=== PATIENT | female | born 1990 | race Caucasian/White ===

== ENCOUNTER 2017-04-15 00:47 | Emergency (ER) | payer SELFPAY ==
[2017-04-15 00:55] VITALS: BP 155/65; PULSE 87; RESP 18; TEMP 37.1; O2SAT 99; BMI 32.1
[2017-04-15 01:17] LABS: Microscopic, Urine URINE MICROSCOPIC (MICROSCOPIC)
[2017-04-15 01:18] LABS: Basophils % 0.4 % (0.1-2.0); Eosinophils # 0.1 K/mm3 (0.0-0.4); Eosinophils % 1.4 % (0.1-12.0); Hematocrit 40.5 % (37.0-47.0); Hemoglobin 13.3 g/dL (12.2-16.2); Lymphocytes # 2.2 K/mm3 (0.7-4.5); Lymphocytes % 45.9 K/mm3 (10-50); Mean Corpuscular Hemoglobin 29.8 pg (27.0-31.2); Mean Corpuscular Volume 90.5 fl (81-99); Mean Platelet Volume 7.5 fl (7.4-10.4); Monocytes # 0.4 K/mm3 (0.1-1.0); Monocytes % 8.3 % (1.7-9.3); Neutrophils # 2.1 K/mm3 (1.8-7.8); Neutrophils % 43.9 % (37.0-80.0); Platelet Count 273 K/mm3 (142-424); Red Blood Count 4.47 M/mm3 (4.20-5.40); Red Cell Distribution Width 12.3 % (11.5-17.5); White Blood Count 4.8 K/mm3 (4.8-10.8)
[2017-04-15 01:20] LABS: Appearance,Urine CLOUDY (Clear); Blood, Urine 3+ (Negative); Color,Urine ORANGE (Yellow); Glucose,Urine (UA) Negative (Negative); Ketones,Urine Negative (Negative); Leukocyte Esterase,Urine Negative (Negative); Nitrate,Urine Negative (Negative); Protein,Urine 1+ (Negative); Specific Gravity, Urine >= 1.030 (1.005-1.030); Urobilinogen,Urine 0.2 EU/dl (0.2)
[2017-04-15 01:23] LABS: Bilirubin,Urine Negative (Negative)
--- NOTE | 2017-04-15 01:26 | [facility].EDPREG ---
ED Disposition Clinical Impression: Threatened Disposition: Home, Self-Care Condition on Discharge: Good Instructions: DI for Vaginal Bleeding Additional Instructions: call jb this am - Critical Care Critical Care Time: No Attestation: On 04/15/17, the high probability of a clinically significant, sudden or life threatening deterioration of the following system(s) required my full and direct attention, intervention and personal management. The time I documented below is in addition to time spent performing reported procedures but includes the following listed in this critical care notation. Medical Decision Making - Medical Records Medical records reviewed: Yes: I reviewed the patient's medical records. Vital Signs: 04/15/17 00:55 Temperature 98.7 F Temperature Source Oral Pulse Rate [Right Brachial] 87 Respiratory Rate 18 Blood Pressure [Right Arm] 155/65 Blood Pressure Mean [Right Arm] 95 Blood Pressure Source [Right Arm] Automatic Cuff Blood Pressure Position [Right Arm] Sitting 02 Sat by Pulse Oximetry 99 Oxygen Delivery Method Room Air - Lab Data Lab results reviewed: Yes: I reviewed the patient's lab results. Lab Results 04/15/17 01:07: Urine Color [place], Urine Appearance Cloudy, Urine pH 6.0, Ur Specific [place] >= 1.030, Urine Protein 1+, Urine Glucose (UA) Negative, Urine Ketones Negative, Urine Blood 3+, Urine Nitrate Negative, Urine Bilirubin Negative, Urine Urobilinogen 0.2, Ur Leukocyte Esterase Negative, Urine RBC Tntc, Urine WBC Occasional, Urine Bacteria Trace 04/15/17 01:07: WBC 4.8, RBC 4.47, Hgb 13.3, Hct 40.5, MCV 90.5, MCH 29.8, MCHC 33.0, RDW 12.3, Plt Count 273, MPV 7.5, Neut % (Auto) 43.9, Lymph % (Auto) 45.9, [place] % (Auto) 8.3, Eos % (Auto) 1.4, Baso % (Auto) 0.4, Neut # (Auto) 2.1, Lymph # (Auto) 2.2, [place] # (Auto) 0.4, Eos # (Auto) 0.1, Baso # (Auto) 0.0 04/15/17 01:07: Sodium 139, Potassium 3.6, Chloride 105, Carbon Dioxide 28, Anion Gap 9.6, BUN 13, Creatinine 0.79, Estimated Creat Clear 161, Estimated GFR 89, Est GFR ( Amer) 108, Glucose 97, Calcium 8.6, Total Bilirubin 0.2, AST 30, ALT 48, Alkaline Phosphatase 94, Total Protein 7.5, Albumin 3.7, Globulin 3.8 H, Albumin/Globulin Ratio 1.0 L 04/15/17 01:07: Serum HCG, Qual Positive 04/15/17 01:10: HCG, Quant 14 H Result diagrams: 04/15/17 01:07 04/15/17 01:07 - Andrae Inquiry Pt receiving controlled substance: No HPI - General Chief complaint: Vaginal Bleeding Stated complaint: Abdominal Pain and vaginal bleeding, 5 wks pregnan Time Seen by Provider: 04/15/17 01:27 Mode of Arrival: Family Vehicle Source of Information: Patient, Medical Record Limitations: No Limitations Description of Symptoms (Recalled from ER Triage Doc. by RN): POSITIVE TEST X 3 LAST WEEK. TONIGHT WITH C/O ABDOMINAL PAIN AND VAGINAL BLEEDING. HAS HAD ONE PREVIOUS MISCARRIAGE [address] HERNANDEZ WITH DR CHÁVEZ ON 04/28/17 - History of Present Illness HPI Narrative: positive home preg test and now with vag bleeding and cramping MD Complaint: vaginal bleeding Onset (ago): hour(s) Consistency: intermittent Location: pelvis Severity: moderate Vaginal bleeding: clots : yes Date of Last Menstrual Period: 03/05/17 - Related Data Para: 0 Home Medications Medication Instructions Recorded Confirmed No Known Home Medications [No 04/15/17 04/15/17 Known Home Medications] Allergies Allergy/AdvReac Type Severity Reaction Status Date / Time No Known Allergies Allergy Verified 04/15/17 01:05 [facility] History I have reviewed the patient's past medical history: Yes Medical History: Denies:: Cancer, Diabetes Mellitus Type 1, Diabetes Mellitus Type 2, MRSA Amputation: No Fractures: No - Social History Smoking Status: Former smoker Smoking End Date: 04/08/17 Alcohol Intake: never - Psychiatric History Expresses thoughts of harming self/others: None Suicide Plan Description
[2017-04-15 01:32] LABS: Alanine Aminotransferase 48 U/L (12-78); Albumin Level 3.7 gm/dL (3.4-5.0); Alkaline Phosphatase 94 U/L (46-116); Anion Gap 9.6 mEq/L (5-15); Aspartate Amino Transferase 30 U/L (15-37); Bilirubin,Total 0.2 mg/dL (0.2-1.0); Blood Urea Nitrogen 13 mg/dL (7-18); Calcium 8.6 mg/dL (8.5-10.1); Carbon Dioxide 28 mmol/L (21.0-32.0); Chloride 105 mmol/L (98-107); Creatinine Clearance Estimated 161 mL/min (0-300); Creatinine,Serum 0.79 mg/dL (0.55-1.02); Estimated Glomerular Filt Rate 89 ml/min (>60); GFR (African American) 108 ML/MIN (>60); Globulin 3.8 gm/dl (1.3-3.2); Glucose 97 mg/dL (74-106); Potassium 3.6 mmoL/L (3.5-5.1); Sodium 139 mmol/L (136-145); Total Protein,Serum 7.5 gm/dL (6.4-8.2)
[2017-04-15 01:37] LABS: HCG Qualitative, Serum Positive (Negative)
[2017-04-15 01:41] LABS: Bacteria,Urine Trace /lpf; RBC,Urine TNTC #/hpf (0-3); WBC,Urine Occasional #/hpf (0-3)
[2017-04-15 01:45] LABS: HCG,Quantitative 14 mIU/mL
[2017-04-15 02:57] VITALS: BP 140/80; PULSE 66; RESP 16; TEMP 37.1; O2SAT 98
== END 2017-04-15 03:12 | disposition home or self-care (01) ==
PROVIDERS: Emergency Provider Emergency Medicine
DX: O20.0 Threatened abortion (principal)
CPT/HCPCS: 80053; 81001; 84702; 84703; 85025; 99283

== ENCOUNTER → 2017-04-16 09:39 | Outpatient (CLI) | payer BC, SELFPAY ==
[2017-04-16 11:31] LABS: HCG,Quantitative 6 mIU/mL
== END ==
PROVIDERS: Visit Provider Nurse Practitioner Obstetrics & Gynecology
DX: O20.0 Threatened abortion (principal); Z32.00 Encounter for pregnancy test, result unknown
CPT/HCPCS: 36415; 84702

== ENCOUNTER → 2017-04-18 08:38 | Outpatient (CLI) | payer BC, SELFPAY ==
[2017-04-18 10:39] LABS: HCG,Quantitative 2 mIU/mL
== END ==
PROVIDERS: Visit Provider Nurse Practitioner Obstetrics & Gynecology
DX: Z32.00 Encounter for pregnancy test, result unknown (principal)
CPT/HCPCS: 36415; 84702

== ENCOUNTER → 2017-08-04 14:26 | Outpatient (CLI) | payer BC, SELFPAY ==
[2017-08-04 14:49] LABS: Basophils % 0.2 % (0.1-2.0); Eosinophils % 0.5 % (0.1-12.0); Hematocrit 38.1 % (37.0-47.0); Hemoglobin 12.7 g/dL (12.2-16.2); Lymphocytes # 1.9 K/mm3 (0.7-4.5); Lymphocytes % 25.5 K/mm3 (10-50); Mean Corpuscular HGB Conc 33.2 g/dL (31.8-35.4); Mean Corpuscular Hemoglobin 28.7 pg (27.0-31.2); Mean Corpuscular Volume 86.3 fl (81-99); Mean Platelet Volume 7.1 fl (7.4-10.4); Monocytes # 0.3 K/mm3 (0.1-1.0); Monocytes % 3.5 % (1.7-9.3); Neutrophils # 5.3 K/mm3 (1.8-7.8); Neutrophils % 70.2 % (37.0-80.0); Platelet Count 276 K/mm3 (142-424); Red Blood Count 4.42 M/mm3 (4.20-5.40); Red Cell Distribution Width 14.2 % (11.5-17.5); White Blood Count 7.5 K/mm3 (4.8-10.8)
[2017-08-07 20:00] LABS: HIV Screen 4th Generation wRfx Non Reactive (Non Reactive); Hepatitis B Surface Antigen Negative (Negative); Hepatitis C Antibody <0.1 s/co ratio (0.0-0.9); Rapid Plasma Reagin Ab Titer Non Reactive (NonRea<1:1); Rubella Antibodies, IgG <0.90 index (Immune >0.99)
== END ==
PROVIDERS: PCP Nurse Practitioner Obstetrics & Gynecology; Visit Provider Nurse Practitioner Obstetrics & Gynecology
DX: Z34.90 Encounter for supervision of normal pregnancy, unspecified, unspecified trimester (principal)
CPT/HCPCS: 36415; 85025; 86592; 86703; 86762; 86850; 87340; 87380; G0432

== ENCOUNTER → 2017-08-13 14:32 | Outpatient (CLI) | payer BC, SELFPAY ==
--- NOTE | 2017-08-13 14:35 | US_ITS ---
US OB transvaginal HISTORY: ITS.REASON: US OB TV -DATES ORDERING PHYSICIAN: Talon Hodge MD PATIENT AGE: 27 years COMPARISON: None FINDINGS: An intrauterine gestational sac is present with a pole with a crown-rump length of 5.26cm correlating to gestational age of 12w0d. heart tones are present with an FHR of 170 bpm's. The uterus is retroverted. There is a 1 cm right corpus luteum cyst IMPRESSION: Live intrauterine gestation at 12 weeks 0 days as described above. Estimated due date by ultrasound is 02/25/2018.
== END ==
PROVIDERS: Visit Provider Nurse Practitioner Obstetrics & Gynecology
DX: O26.841 Uterine size-date discrepancy, first trimester (principal)
CPT/HCPCS: 76830

== ENCOUNTER → 2017-10-07 12:48 | Outpatient (CLI) | payer BC, SELFPAY ==
--- NOTE | 2017-10-07 12:50 | US_ITS ---
US OB /maternal detail: INDICATION: ITS.REASON: US OB Complete ORDERING PHYSICIAN: Talon Hodge MD PATIENT AGE: 27 years TECHNIQUE: ultrasound transabdominal scanning. COMPARISON: No previous relevant studies. FINDINGS: Single viable intrauterine gestation. Cephalic position. Placenta: Anteror placenta grade 1. There is average amount fluid. The cervix appears satisfactory. Complete survey performed and was unremarkable on the submitted images as in PACS. No discrete anomalies identified on survey imaging by technologist. Active fetus. Three-vessel cord with satisfactory umbilical cord insertion. 4- chamber heart noted. Survey of brain & ventricles. Face and neck survey unremarkable. Diaphragm and chest views unremarkable. Abdomen: Both kidneys noted and unremarkable. Stomach noted and satisfactory. Spine: Survey of the spine satisfactory with no anomalies identified nor imaged. Both arms and legs noted. Amniotic Fluid: Adequate. Maternal adnexa: No significant findings. Measurements: Average ultrasound age 20w2d. Gestational Age 19w6d. Estimated due date by ultrasound age 0102/22/18. Estimated weight 319 grams. BPD = 21w0d OFD = 20w2d HC = 19w6d AC = 19w6d FL = 20w0d Growth Percentile= 47 percentile Heart Rate = 143 Cerebellum = 20w5d Humerus = 20w2d HC/AC is 1.18 (1.09-1.26). CI is 83% (70-96%). FL/BPD is 65%. FL/AC is 22%. IMPRESSION: There is a single live fetus present in cephalic presentation. Average ultrasound age is 20 weeks and 2 days. All parameters correlate. No obvious anomalies. The placenta is anterior and grade 1. Please see above for detail.
== END ==
PROVIDERS: Visit Provider Nurse Practitioner Obstetrics & Gynecology
DX: Z36.0 Encounter for antenatal screening for chromosomal anomalies (principal)
CPT/HCPCS: 76811

== ENCOUNTER 2018-01-23 09:44 | Outpatient (CLI) | payer BC, SELFPAY ==
[2018-01-23 09:55] VITALS: BMI 37.5
[2018-01-23 10:04] VITALS: BP 151/78; PULSE 108; RESP 20; TEMP 37.5; O2SAT 98; BMI 37.5
[2018-01-23 10:11] LABS: Microscopic, Urine URINE MICROSCOPIC (MICROSCOPIC)
[2018-01-23 10:22] LABS: Appearance,Urine SL CLOUDY (Clear); Bilirubin,Urine Negative (Negative); Blood, Urine Negative (Negative); Color,Urine YELLOW (Yellow); Glucose,Urine (UA) Negative (Negative); Ketones,Urine Negative (Negative); Leukocyte Esterase,Urine 1+ (Negative); Nitrate,Urine Negative (Negative); PH,Urine 6.5 (5.0-8.5); Protein,Urine TRACE (Negative); Specific Gravity, Urine 1.025 (1.005-1.030); Urobilinogen,Urine 0.2 EU/dl (0.2)
[2018-01-23 10:30] VITALS: BP 135/76; TEMP 37.2
[2018-01-23 10:31] LABS: Bacteria,Urine 3+ /lpf; RBC,Urine Occasional #/hpf (0-3)
== END 2018-01-23 11:23 | disposition home or self-care (01) ==
LOC: OBOUT 09:46 → OB 09:48
PROVIDERS: Referring Provider Nurse Practitioner Obstetrics & Gynecology; Visit Provider Nurse Practitioner Obstetrics & Gynecology
DX: O26.893 Other specified pregnancy related conditions, third trimester (principal); Z3A.35 35 weeks gestation of pregnancy; R10.30 Lower abdominal pain, unspecified; R10.10 Upper abdominal pain, unspecified; R10.2 Pelvic and perineal pain
CPT/HCPCS: 59025; 81001; 87086; 96360

== ENCOUNTER → 2018-01-27 17:39 | Outpatient (CLI) | payer BC, SELFPAY | PROVIDERS: Visit Provider Nurse Practitioner Obstetrics & Gynecology | DX: Z34.90 Encounter for supervision of normal pregnancy, unspecified, unspecified trimester (principal) | CPT/HCPCS: 86403 ==

== ENCOUNTER 2018-02-03 10:29 | Outpatient (CLI) | payer BC, SELFPAY ==
[2018-02-03 10:41] VITALS: BP 157/101; PULSE 94; RESP 18; TEMP 36.8; O2SAT 98; BMI 37.7
[2018-02-03 11:09] LABS: Microscopic, Urine URINE MICROSCOPIC (MICROSCOPIC)
[2018-02-03 11:13] LABS: Appearance,Urine SL CLOUDY (Clear); Bilirubin,Urine Negative (Negative); Blood, Urine Negative (Negative); Color,Urine YELLOW (Yellow); Glucose,Urine (UA) Negative (Negative); Ketones,Urine Negative (Negative); Leukocyte Esterase,Urine TRACE (Negative); Nitrate,Urine Negative (Negative); PH,Urine 6.5 (5.0-8.5); Protein,Urine 1+ (Negative); Specific Gravity, Urine 1.025 (1.005-1.030); Urobilinogen,Urine 0.2 EU/dl (0.2)
[2018-02-03 11:26] LABS: Basophils % 0.3 % (0.1-2.0); Eosinophils % 0.1 % (0.1-12.0); Hemoglobin 11.2 g/dL (12.2-16.2); Lymphocytes # 2.1 K/mm3 (0.7-4.5); Lymphocytes % 24.4 % (10-50); Mean Corpuscular Hemoglobin 28.2 pg (27.0-31.2); Mean Corpuscular Volume 85.6 fl (81-99); Mean Platelet Volume 8.3 fl (7.4-10.4); Monocytes # 0.4 K/mm3 (0.1-1.0); Monocytes % 4.7 % (1.7-9.3); Neutrophils % 70.4 % (37.0-80.0); Platelet Count 335 K/mm3 (142-424); Red Blood Count 3.97 M/mm3 (4.20-5.40); Red Cell Distribution Width 13.7 % (11.5-17.5); White Blood Count 8.5 K/mm3 (4.8-10.8)
[2018-02-03 11:46] LABS: Alanine Aminotransferase 17 U/L (12-78); Anion Gap 14.6 mEq/L (5-15); Aspartate Amino Transferase 17 U/L (15-37); Blood Urea Nitrogen 11 mg/dL (7-18); Calcium 8.7 mg/dL (8.5-10.1); Carbon Dioxide 22 mmol/L (21.0-32.0); Chloride 104 mmol/L (98-107); Creatinine Clearance Estimated 177 mL/min (50-200); Creatinine,Serum 0.84 mg/dL (0.55-1.02); Estimated Glomerular Filt Rate 83 ml/min (>60); GFR (African American) 100 ML/MIN (>60); Glucose 90 mg/dL (74-106); Potassium 3.6 mmoL/L (3.5-5.1); Sodium 137 mmol/L (136-145); Uric Acid 5.6 mg/dL (2.6-7.2)
[2018-02-03 11:51] LABS: Activated Partial Thrombo Time 26.8 seconds (23.6-34.0); Fibrinogen 461 mg/dL (204-500); Prothrombin Time 9.3 seconds (9.4-11.8)
[2018-02-03 11:55] LABS: D-Dimer 1030 ng/mL (0-400)
[2018-02-03 12:02] LABS: Bacteria,Urine 1+ /lpf; Mucus,Urine Trace /lpf
== END 2018-02-03 12:25 | disposition home or self-care (01) ==
LOC: OBOUT 10:31 → OB 10:32
PROVIDERS: Visit Provider Nurse Practitioner Obstetrics & Gynecology
DX: O13.3 Gestational [pregnancy-induced] hypertension without significant proteinuria, third trimester (principal); Z3A.37 37 weeks gestation of pregnancy
CPT/HCPCS: 59025; 80048; 81001; 84450; 84460; 84550; 85025; 85378; 85384; 85610; 85730; 86850; 96360

== ENCOUNTER → 2018-02-04 12:18 | Outpatient (CLI) | payer BC, SELFPAY ==
[2018-02-04 14:04] LABS: Collection Time,Urine 24 hours; Creatinine 24 Hour,Urine 1736 mg/24hr (630-2500); Creatinine,Urine Random 112 mg/dL (20-320); Total Protein 24 Hour,Urine 228 mg/24 hr (40-90); Total Protein,Urine Random 14.7 mg/dL (0.0-11.9); Total Volume,Urine 1550 mL (600-1600)
== END ==
PROVIDERS: Visit Provider Nurse Practitioner Obstetrics & Gynecology
DX: O13.9 Gestational [pregnancy-induced] hypertension without significant proteinuria, unspecified trimester (principal); Z3A.37 37 weeks gestation of pregnancy
CPT/HCPCS: 82570; 84155

== ENCOUNTER 2018-02-05 01:03 | Inpatient (IN) ==
[2018-02-05 05:51] LABS: Microscopic, Urine URINE MICROSCOPIC (MICROSCOPIC)
[2018-02-05 05:56] LABS: Basophils % 0.3 % (0.1-2.0); Eosinophils % 0.2 % (0.1-12.0); Hematocrit 34.6 % (37.0-47.0); Hemoglobin 11.5 g/dL (12.2-16.2); Lymphocytes % 29.5 % (10-50); Mean Corpuscular HGB Conc 33.2 g/dL (31.8-35.4); Mean Corpuscular Hemoglobin 28.7 pg (27.0-31.2); Mean Corpuscular Volume 86.4 fl (81-99); Mean Platelet Volume 7.6 fl (7.4-10.4); Monocytes # 0.3 K/mm3 (0.1-1.0); Monocytes % 4.3 % (1.7-9.3); Neutrophils # 4.4 K/mm3 (1.8-7.8); Neutrophils % 65.6 % (37.0-80.0); Platelet Count 336 K/mm3 (142-424); Red Cell Distribution Width 13.9 % (11.5-17.5); White Blood Count 6.7 K/mm3 (4.8-10.8)
[2018-02-05 06:08] LABS: Anion Gap 15.8 mEq/L (5-15); Potassium 3.8 mmoL/L (3.5-5.1); Uric Acid 5.7 mg/dL (2.6-7.2)
[2018-02-05 06:14] LABS: Appearance,Urine CLEAR (Clear); Bilirubin,Urine Negative (Negative); Blood, Urine Negative (Negative); Color,Urine YELLOW (Yellow); Glucose,Urine (UA) Negative (Negative); Ketones,Urine Negative (Negative); Leukocyte Esterase,Urine Negative (Negative); PH,Urine 7.5 (5.0-8.5); Protein,Urine Negative (Negative); Urobilinogen,Urine 0.2 EU/dl (0.2)
[2018-02-05 06:24] LABS: Bacteria,Urine 2+ /lpf
[2018-02-05 07:09] LABS: Activated Partial Thrombo Time 28.7 seconds (23.6-34.0); INR 0.88 (0.9-1.1); Prothrombin Time 9.1 seconds (9.4-11.8)
--- NOTE | 2018-02-05 08:28 | Progress Note ---
Labor Note - Subjective: Date: 02/05/18 Time: 07:15 regular contraction - Objective: NST:: Reactive Contractions:: every 2-3 minutes Cervical Dilation:: 4 Effacement:: 75% Station: -2 Membranes: artificially ruptured Comment:: I ruptured her membranes and there was clear fluid. - Fetus: Monitoring?: Yes monitoring type:: Internal and External Comment:: I inserted an IUPC. - Assessment: Labor progressing?: Yes Cephalopelvic disproportion?: No Patient Problems: All Active Problems (Acute) Complete miscarriage (Acute) - Plan: Anesthesia for epidural?: Yes Continue to labor down?: No Plan for ?: No Continue to monitor?: Yes Start pushing?: No
--- NOTE | 2018-02-05 08:31 | History & Physical Report ---
OB - H&P: HPI Antepartum - History of Present Illness Chief complaint: , chronic hypertension, maternal obesity, - induced hypert History of present illness: She is a 27-year-old 3 para 0 aborta 2 who is 37-1/2 weeks gestational age. She was seen in my office and had increasing blood pressure. It was in the 150/100 range. She denies headache, scotomata or epigastric pain. Blood work showed a slightly elevated uric acid. Her 24-hour urine showed 200+ milligrams of protein. As a result of the increasing blood pressure we have elected to deliver her. - History of Present Criteria for establishing EDC:: LMP confirmed by 1st trimester US care: good care Ultrasounds: normal 1st trimester US, normal mid trimester US Obstetrical complications: preeclampsia, gestational hypertension [facility] History I have reviewed the patient's past medical history: Yes Medical History: Reports:: Anxiety Denies:: Cancer, Depression, Diabetes Mellitus Type 1, Diabetes Mellitus Type 2, Migraine, MRSA, Seizures Other Surgeries: Yes: No Previous Surgery. No: Amputation: No Fractures: No - *Social History Smoking Status: Former smoker Alcohol Intake: never Substance Use Type: denies use - Psychiatric History Pschychiatric History:: Reports:: Anxiety Denies:: Depression *Family Hx:: Diabetes, Cancer Para: 0 Review of Systems - Review of Systems Review of systems:: pertinent systems reviewed and negative unless documented below Meds Home Medications Medication Instructions Recorded Confirmed Type RX: Ferrous Sulfate 325 mg PO DAILY 02/03/18 02/05/18 History RX: Vit Calc,Iron,Folic 1 tab PO HS 02/03/18 02/05/18 History [Kpn] RX: raNITIdine HCl [Ranitidine HCl] 150 mg PO DAILY 02/03/18 02/05/18 History Allergies Allergy/AdvReac Type Severity Reaction Status Date / Time No Known Allergies Allergy Verified 02/03/18 09:48 OB - H&P: Exam - Constitutional no acute distress - Routine HEENT Exam Head: Present: normocephalic Eye: Present: EOMI, PERRL ENT: Present: mucous membranes moist - Routine Neck Exam Present: supple, full ROM - Routine Respiratory Exam Absent: accessory muscle use (good air entry bilaterally), respiratory distress, wheezes, crackles - Routine Cardiovascular Exam Present: RRR. Absent: murmur - Routine Abdominal Exam Present: soft, normoactive bowel sounds. Absent: tenderness, distended, guarding - Routine Rectal Exam Patient deferred: visual exam, digital exam - Routine Exam Patient deferred: external exam, groin exam, perineal exam - Routine Extremities Exam Present: full ROM. Absent: cyanosis, edema - Routine Skin Exam Present: intact. Absent: cyanosis - Routine Neurological Exam Present: alert, oriented X3 - Routine Psychiatric Exam Present: normal affect OB - Results - Labs Labs: Short CBC 02/05/18 Range/Units 05:30 WBC 6.7 (4.8-10.8) K/mm3 Hgb 11.5 L (12.2-16.2) g/dL Hct 34.6 L (37.0-47.0) % Plt Count 336 (142-424) K/mm3 BMP 02/05/18 05:30 Sodium 135 L Potassium 3.8 Chloride 103 Carbon Dioxide 20 L BUN 10 Creatinine 0.87 Glucose 78 Calcium 9.0 Liver Function 02/05/18 Range/Units 05:30 AST 20 (15-37) U/L ALT 17 (12-78) U/L Urine 02/05/18 Range/Units 05:10 Urine Color Yellow (Yellow) Urine Appearance Clear (Clear) Urine pH 7.5 (5.0-8.5) Ur Specific [place] 1.020 (1.005-1.030) Urine Protein Negative (Negative) Urine Glucose (UA) Negative (Negative) OB - A/P Antepartum (1) Chronic hypertension affecting Current visit: Yes Status: Acute (2) induced hypertension, antepartum Current visit: Yes Status: Acute (3) Maternal obesity syndrome, antepartum Current visit: Yes Status: Acute - Additional Plan Planning to breastfeed?: Yes Plan: induction Additional Information:: She is 37-1/2 weeks just below the 100 range. This morning on admission she was 145/91. As a result of this we are going to deliver her at term.
--- NOTE | 2018-02-05 09:31 | Progress Note ---
[facility] Anesthesia Checklist - Patient Identification Patient Identification: Arm Band - Structural Data Admitted From: Inpatient Planned Operative Procedure/s: labor epidural Consent for Planned Operative Procedure(s) Verified: Yes Verified Documents: Surgical Consent, History and Physical - NPO Status Verified Time NPO: 00:00 - Additional verifications Anesthesia Reactions: No - Airway Assessment C-Spine Mobility Assessed: Yes TMJ Mobility Assessed: Yes Dentition: Good Dentition - Neurological Assessment Level of Consciousness: Awake, Alert - Anesthesia Plan Anesthesia Risk discussed: Yes Anesthesia Plan: Verified ASA Class: II Anesthesia Type: Epidural [facility] History I have reviewed the patient's past medical history: Yes Medical History: Reports:: Anxiety Denies:: Cancer, Depression, Diabetes Mellitus Type 1, Diabetes Mellitus Type 2, Migraine, MRSA, Seizures Other Surgeries: Yes: No Previous Surgery. No: Amputation: No Fractures: No - *Social History Smoking Status: Former smoker Alcohol Intake: never Substance Use Type: denies use - Psychiatric History Pschychiatric History:: Reports:: Anxiety Denies:: Depression *Family Hx:: Diabetes, Cancer Para: 0
--- NOTE | 2018-02-05 10:05 | Progress Note ---
Labor Note - Subjective: Date: 02/05/18 Time: 10:05 regular contraction - Objective: NST:: Reactive Contractions:: every 2-3 minutes Cervical Dilation:: 8 Effacement:: 100% Station: 0 Membranes: artificially ruptured - Fetus: Monitoring?: Yes monitoring type:: Internal Comment:: I inserted a scalp clip - Assessment: Labor progressing?: Yes Cephalopelvic disproportion?: No Patient Problems: All Active Problems Chronic hypertension affecting (Acute) induced hypertension, antepartum (Acute) Maternal obesity syndrome, antepartum (Acute) (Acute) Complete miscarriage (Acute) - Plan: Anesthesia for epidural?: Yes Continue to labor down?: Yes Plan for ?: No Continue to monitor?: Yes Start pushing?: No
--- NOTE | 2018-02-05 12:16 | Procedure Note ---
- Delivery Note Delivery Date:: 02/05/18 Delivery Time:: 11:14 Anesthesia Type: Epidural Was labor medically induced?: Yes Induction method: per pitocin protocol Infant delivered prior to 39 weeks?: Yes Justification for early elective delivery:: Benign Hypertension, Gestational Hypertension at 1 minute: 7 at 5 minutes: 8 AF:: Clear fluid LAC or MLE?: LAC Delivery Procedure:: She is a 27-year-old 3 now para 1 aborta 2 who was 37 weeks gestational age. She has had increased blood pressure and as a result of that she was offered delivery. She was started on IV oxytocin and had her membranes ruptured. Under labor epidural she progressed to full dilation and delivered spontaneously a liveborn male child at 11:14 AM on the morning of February 05, 2018. On deliver the head the anterior shoulder delivered followed by the rest of 's body atraumatically. The oropharynx and nasopharynx were bulb suction. The baby cried spontaneously. We allowed the cord to continue to pulsate for 1 minute. The cord was then doubly clamped and cut. The baby was then placed on the mother's abdomen for further care. The nurses assigned Apgars of 7 at 1 minute and 8 at 5 minutes. We then obtained cord blood as well as cord pH. Using gentle traction on the cord and countertraction the fundus I was able to easily deliver the placenta intact. It had a normal three-vessel cord. She had a small posterior vaginal laceration that was repaired with a single [id number] 3-0 Vicryl Rapide suture. She has O+ blood, she is rubella immune and was group A streptococcus negative. She plans to breast-feed. 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 Estimated blood loss was approximately 400 cc. Laceration:: vaginal Placental Delivery Description: Spontaneous
[2018-02-06 07:04] LABS: Hematocrit 30.4 % (37.0-47.0); Hemoglobin 10.3 g/dL (12.2-16.2)
--- NOTE | 2018-02-06 10:26 | Progress Note ---
Internal Medicine - PN: Subj *Date: 02/06/18 *Time: 10:26 Interval history: She is doing well this morning. She is eating and. She is bottlefeeding. Her lochia is normal. Her pain is reasonably well controlled. Exam Vital signs and Labs for Last 24 Hours: Temp Pulse Resp BP Pulse Ox 97.9 F 83 20 132/76 98 02/06/18 08:00 02/06/18 08:00 02/06/18 08:00 02/06/18 08:40 02/06/18 08:00 Laboratory Results - last 24 hr 02/05/18 11:38: Cord ABG pH 7.28 L 02/06/18 06:15: Hgb 10.3 L, Hct 30.4 L I & O for Last 24 hours: Intake & Output 02/03/18 02/04/18 02/05/18 02/06/18 11:59 11:59 11:59 11:59 Weight 241 lb Microbiology Reports for the Last 24 Hours: Microbiology 02/05/18 05:10 Urine,Clean Catch Urine Culture - Final Multiple organisms, suggests contamination. - Constitutional no acute distress Assessment and Plan (1) Chronic hypertension affecting Current visit: Yes Status: Acute Category: Medical Code(s): O10.919 - Unspecified pre-existing hypertension complicating , unspecified trimester (2) induced hypertension, antepartum Current visit: Yes Status: Acute Category: Medical Code(s): O13.9 - Gest ational [-induced] hypertension without significant proteinuria, unspecified trimester (3) Maternal obesity syndrome, antepartum Current visit: Yes Status: Acute Category: Medical Code(s): O99.210 - Obesity complicating , unspecified trimester - Assessment and plan all Dx Assessment and Plan for all problems:: She is doing well this morning. She is bottlefeeding. We will plan to send her home tomorrow.
--- NOTE | 2018-02-07 10:54 | Discharge Summary ---
General - General Admission date:: 02/05/18 Discharge date: 02/07/18 HPI HPI: She is a 27-year-old 3 now para 1 aborta 2 who was 3 7+4 gestational age. She had increasing blood pressure and as a result of that we elected to induce her labor at term. She was 4 cm dilated. Hospital Course Hospital Course: She was started on IV oxytocin had her membranes ruptured. Under labor epidural she progressed to full dilation and delivered spontaneously a liveborn male child at 11:14 AM on the morning of February 05, 2018. The baby weighed 6 pounds 15 ounces and was 19 inches long. He had Apgars of 7 at 1 minute and 8 at 5 minutes. She had a small first-degree posterior vaginal laceration. She has done well and has remained afebrile throughout her hospitalization. She is eating and drinking and ambulating. She is breast- feeding. She has O+ blood, she is rubella nonimmune and will receive MMR prior to discharge. She was group B streptococcus negative. She is discharged home to follow-up with me in approximately 2 weeks time. She will continue with her vitamins and iron. She is just taking [id number] analgesics for any discomfort. 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 Rhogam Administration: Not Indicated Objective Vital signs: Temp Pulse Resp BP Pulse Ox 98.1 F 70 18 144/85 H 98 02/06/18 20:56 02/06/18 20:56 02/06/18 20:56 02/06/18 20:56 02/06/18 20:56 no acute distress DS: Diagnosis - Discharge Diagnosis (1) Chronic hypertension affecting Status: Acute (2) induced hypertension, antepartum Status: Acute (3) Maternal obesity syndrome, antepartum Status: Acute Discharge Plan - Patient Discharge Instructions ACTIVITY: No heavy lifting DIET: continue same diet Additional Instructions: No heavy lifting, no strenuous activity, and nothing in the vagina for 6 weeks. Patient Instructions: Depression, Hemorrhage, [facility] Post Discharge Instructions - Follow up Plan Follow up with: Talon Hodge MD [Staff Physician] - Disposition: Home, Self-Usp Medications: Home Medications Medication Instructions Recorded Confirmed Type Ferrous Sulfate 325 mg PO DAILY 02/03/18 02/05/18 History Vit Calc,Iron,Folic [Kpn] 1 tab PO HS 02/03/18 02/05/18 History raNITIdine HCl [Ranitidine HCl] 150 mg PO DAILY 02/03/18 02/05/18 History Prescriptions/Medication Reconciliation: Continue raNITIdine HCl [Ranitidine HCl] 150 mg PO DAILY Vit Calc,Iron,Folic [Kpn] 1 tab PO HS Ferrous Sulfate 325 mg PO DAILY
[2018-02-07 21:03] VITALS: BP 141/83
== END 2018-02-07 20:23 | disposition home or self-care (01) | DRG 807 ==
LOC: OB 05:00
PROVIDERS: ADMIT Nurse Practitioner Obstetrics & Gynecology; ATTEND Nurse Practitioner Obstetrics & Gynecology
CPT/HCPCS: C1758

== ENCOUNTER 2019-08-28 21:49 | Emergency (ER) | payer OTHER, SELFPAY ==
[2019-08-28 22:00] VITALS: BP 121/95; PULSE 78; RESP 16; O2SAT 99
[2019-08-28 22:08] VITALS: BP 118/93; PULSE 71; RESP 14; TEMP 37.5; O2SAT 100; BMI 34.7
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
[2019-08-28 22:28] LABS: Microscopic, Urine URINE MICROSCOPIC (MICROSCOPIC)
[2019-08-28 22:29] LABS: Basophils % 0.4 % (0.1-2.0); Eosinophils # 0.1 K/mm3 (0.0-0.4); Eosinophils % 1.5 % (0.1-12.0); Hematocrit 38.2 % (37.0-47.0); Hemoglobin 12.9 g/dL (12.2-16.2); Lymphocytes # 3.3 K/mm3 (0.7-4.5); Lymphocytes % 40.1 % (10-50); Mean Corpuscular HGB Conc 33.8 g/dL (31.8-35.4); Mean Corpuscular Hemoglobin 27.9 pg (27.0-31.2); Mean Corpuscular Volume 82.6 fl (81-99); Mean Platelet Volume 8.5 fl (7.4-10.4); Monocytes # 0.4 K/mm3 (0.1-1.0); Monocytes % 4.7 % (1.7-9.3); Neutrophils # 4.4 K/mm3 (1.8-7.8); Neutrophils % 53.3 % (37.0-80.0); Platelet Count 179 K/mm3 (142-424); Red Blood Count 4.62 M/mm3 (4.20-5.40); Red Cell Distribution Width 13.9 % (11.5-17.5); White Blood Count 8.2 K/mm3 (4.8-10.8)
[2019-08-28 22:30] VITALS: BP 131/88; PULSE 79; RESP 16; O2SAT 98
[2019-08-28 22:33] LABS: Appearance,Urine SL CLOUDY (Clear); Bilirubin,Urine Negative (Negative); Blood, Urine Negative (Negative); Color,Urine YELLOW (Yellow); Glucose,Urine (UA) Negative (Negative); Ketones,Urine TRACE (Negative); Leukocyte Esterase,Urine Negative (Negative); Nitrate,Urine Negative (Negative); Protein,Urine 1+ (Negative); Specific Gravity, Urine >= 1.030 (1.005-1.030); Urobilinogen,Urine 0.2 EU/dl (0.2)
[2019-08-28 22:35] LABS: Alanine Aminotransferase 28 U/L (12-78); Albumin Level 4.7 g/dl (3.5-5.0); Albumin/Globulin Ratio 1.3 (1.1-1.8); Alkaline Phosphatase 93 U/L (38-126); Amylase 64 U/L (30-110); Anion Gap 12.8 mEq/L (5-15); Aspartate Amino Transferase 41 U/L (14-36); Bilirubin,Total 0.2 mg/dl (0.2-1.3); Blood Urea Nitrogen 17 mg/dl (7-17); Calcium 9.8 mg/dl (8.4-10.2); Carbon Dioxide 29 mmol/L (22.0-30.0); Chloride 103 mmol/L (98-107); Creatinine Clearance Estimated 192 mL/min (50-200); Estimated Glomerular Filt Rate 100 ml/min (>60); GFR (African American) 121 ML/MIN (>60); Globulin 3.7 g/dL (1.3-3.2); Glucose 100 mg/dl (74-100); Lipase 105 U/L (23-300); Potassium 3.8 mmoL/L (3.5-5.1); Sodium 141 mmol/L (136-145); Total Protein,Serum 8.4 g/dl (6.3-8.2)
[2019-08-28 22:39] LABS: Urine Pregnancy, HCG Qual. Negative (Negative)
[2019-08-28 22:40] LABS: Amorphous Sediment,Urine Trace /lpf; Mucus,Urine 3+ /lpf
[2019-08-28 23:00] VITALS: BP 127/88; PULSE 69; RESP 18; O2SAT 99
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
[2019-08-28 23:30] VITALS: BP 123/78; PULSE 68; RESP 17; O2SAT 98
[2019-08-29] VITALS: BP 124/89; PULSE 74; RESP 16; O2SAT 99
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
[2019-08-29 00:32] VITALS: BP 122/83; PULSE 76; RESP 16; TEMP 37.2; O2SAT 98
== END 2019-08-29 00:35 | disposition home or self-care (01) ==
PROVIDERS: Emergency Provider Emergency Medicine
DX: S16.1XXA Strain of muscle, fascia and tendon at neck level, initial encounter (principal); S30.1XXA Contusion of abdominal wall, initial encounter; V43.52XA Car driver injured in collision with other type car in traffic accident, initial encounter; Y92.414 Local residential or business street as the place of occurrence of the external cause; F17.210 Nicotine dependence, cigarettes, uncomplicated
CPT/HCPCS: 70450; 71045; 72125; 72170; 73110; 73590; 73630; 74177; 80053; 81001; 81025; 82150; 83690; 85025; 99284; Q9967

== ENCOUNTER → 2019-11-28 10:49 | Outpatient (CLI) | payer OTHER, SELFPAY ==
--- NOTE | 2019-11-28 10:53 | US_ITS ---
PROCEDURE: US THYROID CLINICAL INDICATION: HHYPOTHYROIDISM COMPARISON: No exams were available for comparison FINDINGS: Right lobe: 5.4 x 1.7 x 2.2 cm Left lobe: 4.6 x 1.6 x 2.1 cm Isthmus: Mildly thickened at 4 mm Additional findings: There is some heterogeneous echogenicity of the thyroid but no discrete nodule is evident. IMPRESSION: Mildly enlarged heterogeneous thyroid without definite nodule Dictated by: Chele Lawton MD 11/28/2019 13:16 Chele Lawton MD in [facility] 11/28/2019 13:16
== END ==
PROVIDERS: Visit Provider Family Medicine
DX: E03.9 Hypothyroidism, unspecified (principal)
CPT/HCPCS: 76536

== ENCOUNTER → 2020-01-03 13:17 | Outpatient (CLI) | payer OTHER, SELFPAY ==
[2020-01-03 15:18] LABS: HCG,Quantitative < 2 mIU/ml (0-5.42)
== END ==
PROVIDERS: Visit Provider Family Medicine
DX: N91.2 Amenorrhea, unspecified (principal)
CPT/HCPCS: 36415; 84702

== ENCOUNTER 2020-01-08 09:19 | Emergency (ER) | payer OTHER, SELFPAY ==
[2020-01-08 09:20] VITALS: BP 159/77; PULSE 78; RESP 28; TEMP 36.6; O2SAT 99; BMI 34.4
[2020-01-08 09:45] LABS: Basophils % 0.6 % (0.1-2.0); Eosinophils # 0.1 K/mm3 (0.0-0.4); Hematocrit 40.1 % (37.0-47.0); Hemoglobin 13.1 g/dL (12.2-16.2); Lymphocytes # 2.8 K/mm3 (0.7-4.5); Lymphocytes % 50.1 % (10-50); Mean Corpuscular HGB Conc 32.8 g/dL (31.8-35.4); Mean Corpuscular Hemoglobin 27.7 pg (27.0-31.2); Mean Corpuscular Volume 84.5 fl (81-99); Mean Platelet Volume 7.3 fl (7.4-10.4); Microscopic, Urine URINE MICROSCOPIC (MICROSCOPIC); Monocytes # 0.3 K/mm3 (0.1-1.0); Monocytes % 5.9 % (1.7-9.3); Neutrophils # 2.3 K/mm3 (1.8-7.8); Neutrophils % 42.4 % (37.0-80.0); Platelet Count 326 K/mm3 (142-424); Red Blood Count 4.74 M/mm3 (4.20-5.40); Red Cell Distribution Width 14.1 % (11.5-17.5); White Blood Count 5.5 K/mm3 (4.8-10.8)
[2020-01-08 09:47] LABS: Appearance,Urine CLEAR (Clear); Bilirubin,Urine Negative (Negative); Blood, Urine 3+ (Negative); Chloride 102 mmol/L (98-107); Color,Urine YELLOW (Yellow); Glucose,Urine (UA) Negative (Negative); Ketones,Urine Negative (Negative); Leukocyte Esterase,Urine Negative (Negative); Nitrate,Urine Negative (Negative); Protein,Urine Negative (Negative); Sodium 137 mmol/L (136-145); Specific Gravity, Urine 1.015 (1.005-1.030); Urobilinogen,Urine 0.2 EU/dl (0.2)
[2020-01-08 09:48] LABS: Potassium 3.8 mmoL/L (3.5-5.1)
[2020-01-08 09:50] VITALS: BP 119/52; PULSE 65; RESP 18; O2SAT 98
[2020-01-08 09:50] LABS: Alanine Aminotransferase 48 U/L (12-78); Albumin Level 4.5 g/dl (3.5-5.0); Albumin/Globulin Ratio 1.4 (1.1-1.8); Alkaline Phosphatase 92 U/L (38-126); Anion Gap 12.8 mEq/L (5-15); Aspartate Amino Transferase 50 U/L (14-36); Bilirubin,Total 0.5 mg/dl (0.2-1.3); Blood Urea Nitrogen 13 mg/dl (7-17); Calcium 9.6 mg/dl (8.4-10.2); Carbon Dioxide 26 mmol/L (22.0-30.0); Creatinine Clearance Estimated 166 mL/min (50-200); Estimated Glomerular Filt Rate 86 ml/min (>60); GFR (African American) 104 ML/MIN (>60); Globulin 3.3 g/dL (1.3-3.2); Glucose 116 mg/dl (74-100); Total Protein,Serum 7.8 g/dl (6.3-8.2)
--- NOTE | 2020-01-08 09:50 | CT_ITS ---
Procedure: CT ABDOMEN PELVIS W CON Referring Doctor: Joe Riojas Patient Age:29Y CLINICAL INDICATION: ABD PAIN COMPARISON: CT CT ABDOMEN PELVIS W CON from 08/28/2019 TECHNIQUE: IV contrast: 75 cc of Isovue 370 IV contrast utilized. No oral contrast given Axial images obtained with sagittal and coronal reformats. All CT scans at the facility use one or more dose reduction, viz: automated exposure control, ma/kV adjustment per patient size (including targeted exams where dose is matched to indication, i.e. head), or iterative reconstruction technique. FINDINGS: Lower thorax: Minimal area of airspace disease left posterior sulcus more so than right-these changes most likely reflecting atelectasis. Less likely early infiltrate at left posterior sulcus but2 ABDOMEN: Liver: No significant appearing findings. But no biliary duct ductal dilatation. Only subtle stable fatty changes anterior liver just adjacent to the falciform ligament. Gallbladder: Nondistended. No radio opaque stones.. Common duct normal Pancreas: Unremarkable. No masses no apparent inflammation Spleen: unremarkable Adrenals: unremarkable tract -------- Kidneys/ureters: No significant findings no urinary tract calculi nor obstruction Left kidney. Small 1 cm cyst midportion left kidney-stable. Right kidney unremarkable PELVIS: Reproductive: A slight retroverted retroflexed uterus appears normal size. Slight generous endometrial stripe-could reflect premenstrual status? Right ovary up to 3.5 cm length. Suspect contains numerous small follicles. Left ovary is smaller but likely contains small follicles as well Only question scant physiologic fluid pelvic basin.. No significant increased fluid abdomen or pelvis Bladder: Nondistended. No obvious stones or masses. Appendix: Unremarkable. No distention or periappendiceal phlegmonous change. GI tract: Rectum. Moderate stool but I would note very slight additional stranding left perirectal fat compared to prior study but this is minimal quite nonspecific. But warrants correlation Large bowel: Moderate solid stool seen at the right and transverse colon as well as throughout the sigmoid: The upper normal wall thickness throughout transverse colon and descending colon maymerely reflect lack of distension. Small bowel. Note slight increased fluid throughout small bowel with a few small air-fluid levels. There does appear to be mild distention of proximal small bowel of up to 3 cm diameter here at the left upper quadrant-but nonspecific. Could possibly reflect a mild ileus or early enteritis. Upper normal wall thickness proximal small bowel noted as well.... Distal small bowel appears normal caliber and unremarkable terminal ileum unremarkable. Appendix normal.. Stomach unremarkable. Cannot exclude a small sliding hiatal hernia. Peritoneum: No abnormal fluid collections. No obvious inflammatory changes. No free air. Lymph nodes: No enlarged lymph nodes apparent. Vasculature: No evidence of abdominal aortic aneurysm. No retroperitoneal hemorrhage evident. Bones: No acute fracture or lesion. Sacralization L5 on the right incidentally noted IMPRESSION: No prominent findings, only minor observations.: . Minimal distention of proximal small bowel loops LUQ. Slight increased fluid here and throughout small bowel. Unimpressive but findings could conceivably reflect a mild ileus or early enteritis . Only moderate solid stool at right, transverse colon and rectosigmoid.. No liquid stool or diarrhea. Upper normal wall thickness descending colon most likely reflecting lack of distension . Suggestion of subtle additional stranding appea
[2020-01-08 09:51] LABS: MANUAL DIFFERENTIAL MANUAL DIFFERENTIAL (MANUAL DIFF)
[2020-01-08 09:52] LABS: Urine Pregnancy, HCG Qual. Negative (Negative)
--- NOTE | 2020-01-08 09:52 | HMH.EDGENADL ---
ED Disposition Clinical Impression: Abdominal pain, lower Disposition: Home, Self-Care Condition on Discharge: Good Instructions: DI for Abdominal Pain-Adult Additional Instructions: Ibuprofen for pain. Additional instructions for ABDOMINAL PAIN: See your physician as soon as possible if symptoms persist. Return immediately if worsening abdominal pain, vomiting, shortness of breath, fever, vomiting of blood or abdominal distention. Referrals: Luke Vargas MD [Primary Care Provider] - - Critical Care Critical Care Time: No Attestation: On 01/08/20, the high probability of a clinically significant, sudden or life threatening deterioration of the following system(s) required my full and direct attention, intervention and personal management. The time I documented below is in addition to time spent performing reported procedures but includes the following listed in this critical care notation. Medical Decision Making - Andrae Inquiry Pt receiving controlled substance: No Vital Signs: 01/08/20 09:20 01/08/20 09:50 01/08/20 10:20 Temperature 97.9 F Temperature Source Oral Pulse Rate Pulse Rate [Radial] 78 65 64 Respiratory Rate 28 H 18 18 Blood Pressure Blood Pressure [Right Arm] 159/77 H 119/52 L 128/80 Blood Pressure Mean [Right Arm] 104 74 96 Blood Pressure Source [Right Arm] Automatic Cuff Automatic Cuff Blood Pressure Position [Right Arm] Sitting Sitting Sitting 02 Sat by Pulse Oximetry 99 98 100 Oxygen Delivery Method Room Air Room Air Room Air 01/08/20 11:20 01/08/20 13:12 Temperature 97.9 F Temperature Source Oral Pulse Rate 70 Pulse Rate [Radial] 67 Respiratory Rate 18 17 Blood Pressure 125/79 Blood Pressure [Right Arm] 121/80 Blood Pressure Mean [Right Arm] 93 Blood Pressure Source [Right Arm] Automatic Cuff Blood Pressure Position [Right Arm] Sitting 02 Sat by Pulse Oximetry 99 Oxygen Delivery Method Room Air Room Air - Lab Data Lab results reviewed: Yes: I reviewed the patient's lab results. Lab Results 01/08/20 09:30: Urine Color Yellow, Urine Appearance Clear, Urine pH 6.0, Ur Specific [place] 1.015, Urine Protein Negative, Urine Glucose (UA) Negative, Urine Ketones Negative, Urine Blood 3+, Urine Nitrate Negative, Urine Bilirubin Negative, Urine Urobilinogen 0.2, Ur Leukocyte Esterase Negative, Urine RBC 20-50, Urine WBC None, Ur Squamous Epith Cells 3-5, Urine Bacteria None 01/08/20 09:30: WBC 5.5, RBC 4.74, Hgb 13.1, Hct 40.1, MCV 84.5, MCH 27.7, MCHC 32.8, RDW 14.1, Plt Count 326, MPV 7.3 L, Neut % (Auto) 42.4, Lymph % (Auto) 50.1 H, Carver % (Auto) 5.9, Eos % (Auto) 1.0, Baso % (Auto) 0.6, Neut # (Auto) 2.3, Lymph # (Auto) 2.8, Carver # (Auto) 0.3, Eos # (Auto) 0.1, Baso # (Auto) 0.0, Total Counted 100, Neutrophils % (Manual) 49, Lymphocytes % (Manual) 48, Monocytes % (Manual) 2, Eosinophils % (Manual) 1, Platelet Estimate Normal, RBC Morphology Normal 01/08/20 09:30: Sodium 137, Potassium 3.8, Chloride 102, Carbon Dioxide 26, Anion Gap 12.8, BUN 13, Creatinine 0.80, Estimated Creat Clear 166, Estimated GFR 86, Est GFR ( Amer) 104, Glucose 116 H, Calcium 9.6, Total Bilirubin 0.5, AST 50 H, ALT 48, Alkaline Phosphatase 92, Total Protein 7.8, Albumin 4.5, Globulin 3.3 H, Albumin/Globulin Ratio 1.4 01/08/20 09:30: Urine HCG, Qual Negative 01/08/20 09:31: Amylase 60, Lipase 79 Result diagrams: 01/08/20 09:30 01/08/20 09:30 Orders (Tests/Meds): ED MEDICATIONS Discontinued Medications Generic Name Dose Route Start Last Admin Trade Name Freq PRN Reason Stop Dose Admin Sodium Chloride 1,000 mls @ 999 mls/hr 01/08/20 09:45 01/08/20 09:49 Sod Chlor 0.9% 1000ml Bag IV 01/08/20 10:45 999 mls/hr .Q1H1M LORENZO Administration Iopamidol 75 ml 01/08/20 10:40 01/08/20 10:41 Iopamidol-370 (76%);100ml Bottle IV 01/08/20 10:41 75 ml ONCE ONE Administration Ketorolac Tromethamine 30 mg 01/08/20 09:39 01/08/20 09:49 Ketorolac 30mg/
[2020-01-08 09:55] LABS: RBC,Urine 20-50 #/hpf (0-3)
[2020-01-08 10:02] LABS: Eosinophils % 1 % (0-3); Lymphocytes % 48 % (10-50); Monocytes % 2 % (2-9); Neutrophils % 49 % (42-76); Platelet Estimate Normal; RBC Morphology Normal; Total Cells Counted 100
[2020-01-08 10:12] LABS: Amylase 60 U/L (30-110); Lipase 79 U/L (23-300)
[2020-01-08 10:20] VITALS: BP 128/80; PULSE 64; RESP 18; O2SAT 100
[2020-01-08 11:20] VITALS: BP 121/80; PULSE 67; RESP 18; O2SAT 99
[2020-01-08 13:12] VITALS: BP 125/79; PULSE 70; RESP 17; TEMP 36.6; O2SAT 99
== END 2020-01-08 13:12 | disposition home or self-care (01) ==
PROVIDERS: Emergency Provider Emergency Medicine; PCP Family Medicine
DX: R10.30 Lower abdominal pain, unspecified (principal); F17.210 Nicotine dependence, cigarettes, uncomplicated
CPT/HCPCS: 74177; 80053; 81001; 81025; 82150; 83690; 85007; 85025; 96365; 96375; 99283; J2405; Q9967

== ENCOUNTER → 2021-04-22 10:04 | Outpatient (CLI) | payer OTHER, SELFPAY ==
[2021-04-22 11:37] LABS: HCG,Quantitative < 2 mIU/ml (0-5.42)
== END ==
LOC: LAB 10:05
PROVIDERS: Visit Provider Nurse Practitioner Obstetrics & Gynecology
DX: N92.6 Irregular menstruation, unspecified (principal)
CPT/HCPCS: 36415; 84702

== ENCOUNTER → 2021-09-05 12:07 | Outpatient (CLI) | payer BC, SELFPAY ==
--- NOTE | 2021-09-05 12:12 | US_ITS ---
FINAL REPORT CLINICAL HISTORY: Irregular Periods FINDINGS: Transvaginal sonographic images of the pelvis were obtained. The uterus is retroflexed and retroverted and measures 8.2 x 5.9 x 4.3 cm. The endometrium measures 20 mm which is thickened as a nonspecific finding. No uterine mass is identified. The right ovary measures 3 cm in length and left ovary measures 3 cm in length. Normal blood flow seen to the ovaries. There are bilateral ovarian cysts measuring up to 2.1 cm on the left and up to 1.9 cm on the right. There is a small amount of free fluid which may be physiologic or reactive. IMPRESSION: Thickened endometrium as a nonspecific finding. Bilateral ovarian cysts. Reviewed, Interpreted and Dictated by Wallace Foy III, MD Transcribed by Afshan Posada Authenticated and [facility]
== END ==
LOC: RAD 12:09
PROVIDERS: PCP Family Medicine; Visit Provider Nurse Practitioner Obstetrics & Gynecology
DX: N92.6 Irregular menstruation, unspecified (principal)
CPT/HCPCS: 76830

== ENCOUNTER → 2021-10-01 16:00 | Outpatient (CLI) | payer BC, SELFPAY ==
[2021-10-01 16:39] LABS: Basophils % 0.5 % (0.1-2.0); Eosinophils # 0.1 K/mm3 (0.0-0.4); Eosinophils % 1.4 % (0.1-12.0); Hematocrit 34.9 % (37.0-47.0); Lymphocytes % 30.2 % (10-50); Mean Corpuscular HGB Conc 31.6 g/dL (31.8-35.4); Mean Corpuscular Hemoglobin 29.1 pg (27.0-31.2); Mean Corpuscular Volume 92.1 fl (81-99); Mean Platelet Volume 7.5 fl (7.4-10.4); Monocytes # 0.2 K/mm3 (0.1-1.0); Monocytes % 3.8 % (1.7-9.3); Neutrophils # 4.2 K/mm3 (1.8-7.8); Neutrophils % 64.1 % (37.0-80.0); Platelet Count 350 K/mm3 (142-424); Red Blood Count 3.79 M/mm3 (4.20-5.40); Red Cell Distribution Width 13.9 % (11.5-17.5); White Blood Count 6.5 K/mm3 (4.8-10.8)
[2021-10-01 17:07] LABS: Free Thyroxine Index 3.4 ug/dL (5.93-13.13); T4 (Thyroxine) 15.4 ug/dl (5.53-11.0); Triiodothryronine (T3) Uptake 22 % (23.5-40.5)
[2021-10-01 17:20] LABS: Thyroid Stimulating Hormone 3.46 uIU/mL (0.465-4.68)
== END ==
PROVIDERS: PCP Family Medicine; Visit Provider Nurse Practitioner Obstetrics & Gynecology
DX: N93.9 Abnormal uterine and vaginal bleeding, unspecified (principal)
CPT/HCPCS: 36415; 84436; 84443; 84479; 85025

== ENCOUNTER 2023-02-25 10:07 | Outpatient (CLI) | payer BC, SELFPAY ==
[2023-02-25 11:25] LABS: HCG,Quantitative 2342 mIU/ml (0-5.42)
[2023-02-26 08:24] LABS: Progesterone 12.4 ng/mL (.)
== END 2023-02-25 23:59 ==
PROVIDERS: Visit Provider Nurse Practitioner Obstetrics & Gynecology
DX: N92.6 Irregular menstruation, unspecified (principal)
CPT/HCPCS: 36415; 84144; 84702

== ENCOUNTER 2023-03-17 15:05 | Outpatient (CLI) | payer BC, SELFPAY ==
[2023-03-17 15:36] LABS: Basophils % 0.5 % (0.1-2.0); Eosinophils # 0.1 K/mm3 (0.0-0.4); Hemoglobin 12.3 g/dL (12.2-16.2); Lymphocytes # 1.8 K/mm3 (0.7-4.5); Lymphocytes % 23.5 % (10-50); Mean Corpuscular HGB Conc 34.2 g/dL (31.8-35.4); Mean Corpuscular Hemoglobin 28.1 pg (27.0-31.2); Mean Corpuscular Volume 82.3 fl (81-99); Mean Platelet Volume 7.6 fl (7.4-10.4); Monocytes # 0.3 K/mm3 (0.1-1.0); Monocytes % 4.3 % (1.7-9.3); Neutrophils # 5.5 K/mm3 (1.8-7.8); Neutrophils % 70.7 % (37.0-80.0); Platelet Count 317 K/mm3 (142-424); Red Blood Count 4.37 M/mm3 (4.20-5.40); Red Cell Distribution Width 14.3 % (11.5-17.5); White Blood Count 7.8 K/mm3 (4.8-10.8)
[2023-03-18 10:03] LABS: HIV Screen 4th Generation wRfx Non Reactive (Non Reactive); Rapid Plasma Reagin Ab Titer Non Reactive titer (NonRea<1:1)
[2023-03-24 10:39] LABS: Hepatitis B Surface Antigen Negative
[2023-03-24 10:40] LABS: Hepatitis C Antibody Non Reactive; Rubella Antibodies, IgG 1.56
== END 2023-03-17 23:59 ==
LOC: LAB 15:05
PROVIDERS: Visit Provider Nurse Practitioner Obstetrics & Gynecology
DX: Z34.91 Encounter for supervision of normal pregnancy, unspecified, first trimester (principal); Z3A.08 8 weeks gestation of pregnancy
CPT/HCPCS: 85025; 86593; 86703; 86762; 86850; 87340; 87380; G0432

== ENCOUNTER 2023-03-20 15:54 | Outpatient (CLI) | payer BC, SELFPAY ==
--- NOTE | 2023-03-20 15:54 | US_ITS ---
PROCEDURE: US OB <= 14 WEEKS FETUS CLINICAL INDICATION: for dates COMPARISON: No exams were available for comparison FINDINGS: Transvaginal sonographic images of the pelvis were obtained. From her last menstrual period she is 8weeks 3days. An intrauterine gestational sac is present with a pole with a crown-rump length of 1.58cm This correlates to a gestational age of 8weeks 0 days. heart tones are present with an FHR of 156bpm. Yolk sac is noted. The yolk sac measures 5.5mm. The right ovary is seen and appears normal. The left ovary is seen and appears normal. There is a corpus luteum in the left ovary measuring 1.1 cm. There is no fluid in the cul-de-sac. IMPRESSION: 1. Retroverted uterus with viable intrauterine . 2. Fetus measures 8 weeks 0 days. LILY by ultrasound is 10/30/2023. 3. There is a small fluid collection adjacent to the amnion. Possible subchorionic hemorrhage. 4. Both ovaries are seen and appear normal. There appears to be a corpus luteum on the left ovary. 5. No fluid in the cul-de-sac. Dictated by: Talon Hodge MD 03/21/2023 07:30 Talon Hodge MD in [place] 03/21/2023 07:30
== END 2023-03-20 23:59 ==
LOC: RAD 15:54
PROVIDERS: PCP Nurse Practitioner Obstetrics & Gynecology; Visit Provider Nurse Practitioner Obstetrics & Gynecology
DX: Z34.91 Encounter for supervision of normal pregnancy, unspecified, first trimester (principal); Z3A.08 8 weeks gestation of pregnancy
CPT/HCPCS: 76801

== ENCOUNTER 2023-06-17 09:28 | Outpatient (CLI) | payer BC, SELFPAY ==
--- NOTE | 2023-06-17 09:29 | US_ITS ---
PROCEDURE: US OB /MATERNAL DETAIL CLINICAL INDICATION: 20 week anatomy scan COMPARISON: US US OB <= 14 WEEKS FETUS from 03/20/2023 FINDINGS: Transabdominal sonographic images of the pelvis were obtained. From her established due date she is 21 weeks 1 day. Single viable intrauterine gestation. Cephalic position. Placenta: Posteriorplacenta grade 1. There is an average amount of fluid. The cervix appears satisfactory. Closed and measuring 3.6 cm in length. Complete survey performed and was unremarkable on the submitted images as in PACS. No discrete anomalies identified on survey imaging by technologist. Active fetus. Three-vessel cord with satisfactory umbilical cord insertion. 4- chamber heart noted. Situs, aortic arch, LVOT, RVOT, three-vessel view appear normal. Survey of brain & ventricles Unremarkable. Cerebellum, thalamus, choroid plexus, cisterna magna appear normal. Face and neck survey unremarkable. Profile, nasion, lips and nose appeared normal. Diaphragm and chest views unremarkable. Abdomen: Both kidneys noted and unremarkable. Stomach and bladder noted and satisfactory. Spine: Survey of the spine satisfactory with no anomalies identified nor imaged. Cervical, thoracic, lower spine appear normal. Both arms and legs noted. Amniotic Fluid: Adequate. Measurements: Average ultrasound age 20weeks 5days. Estimated due date by ultrasound age 0910/30/2023. Estimated weight 365g BPD = 20weeks 5days HC = 20weeks 2days AC = 20weeks 6days FL = 20weeks 4days Growth Percentile= 19 Heart Rate = 147bpm Cerebellum = 20weeks 5days Humerus = 20weeks 4days HC/AC is 1.14 FL/BPD is 0.7 FL/AC is 0.22 IMPRESSION: 1. Viable fetus in the cephalic presentation with a posterior placenta grade 1. 2. The fluid is within normal limits. 3. Anatomical scan appears normal. 4. biometry is consistent with the dates. 5. The head circumference is slightly small at 8th percentile and would suggest repeat ultrasound at 28 weeks. Dictated by: Talon Hodge MD 06/18/2023 07:55 Talon Hodge MD in [place] 06/18/2023 07:55
== END 2023-06-17 23:59 | disposition home or self-care (01) ==
LOC: RAD 09:29
PROVIDERS: Visit Provider Nurse Practitioner Obstetrics & Gynecology
DX: O26.892 Other specified pregnancy related conditions, second trimester (principal); Z36.89 Encounter for other specified antenatal screening; Z3A.20 20 weeks gestation of pregnancy
CPT/HCPCS: 76811

== ENCOUNTER 2023-07-24 07:15 | Outpatient (CLI) | payer BC, OTHER, SELFPAY ==
[2023-07-24 08:09] LABS: Glucose,Fasting 95 mg/dl (74-100)
[2023-07-24 09:08] LABS: Glucose 1 Hour 149 mg/dL (74-100)
[2023-07-24 10:58] LABS: Glucose 2 Hour 109 mg/dL (74-100)
[2023-07-24 11:53] LABS: Glucose 3 Hour 60 mg/dL (74-100)
== END 2023-07-24 23:59 | disposition home or self-care (01) ==
LOC: LAB 07:16
PROVIDERS: Visit Provider Nurse Practitioner Obstetrics & Gynecology
DX: O26.892 Other specified pregnancy related conditions, second trimester (principal); Z3A.25 25 weeks gestation of pregnancy
CPT/HCPCS: 36415; 82951

== ENCOUNTER 2023-09-29 09:32 | Outpatient (CLI) | payer BC, OTHER, SELFPAY ==
[2023-09-29 10:10] LABS: Basophils # 0.1 K/mm3 (0-0.2); Basophils % 0.9 % (0.1-2.0); Eosinophils # 0.1 K/mm3 (0.0-0.4); Hematocrit 40.5 % (37.0-47.0); Hemoglobin 12.7 g/dL (12.2-16.2); Lymphocytes # 2.3 K/mm3 (0.7-4.5); Lymphocytes % 40.2 % (10-50); Mean Corpuscular HGB Conc 31.2 g/dL (31.8-35.4); Mean Corpuscular Volume 89.6 fl (81-99); Mean Platelet Volume 7.8 fl (7.4-10.4); Monocytes # 0.3 K/mm3 (0.1-1.0); Monocytes % 5.4 % (1.7-9.3); Neutrophils % 51.5 % (37.0-80.0); Platelet Count 328 K/mm3 (142-424); Red Blood Count 4.52 M/mm3 (4.20-5.40); Red Cell Distribution Width 14.4 % (11.5-17.5); White Blood Count 5.8 K/mm3 (4.8-10.8)
[2023-09-29 10:17] LABS: Albumin Level 4.2 g/dl (3.5-5.0); Chloride 106 mmol/L (98-107); Potassium 4.4 mmoL/L (3.5-5.1); Sodium 138 mmol/L (136-145)
[2023-09-29 10:20] LABS: Alanine Aminotransferase 86 U/L (12-78); Albumin/Globulin Ratio 1.4 (1.1-1.8); Alkaline Phosphatase 101 U/L (38-126); Anion Gap 9.4 mEq/L (5-15); Aspartate Amino Transferase 66 U/L (14-36); Bilirubin,Total 0.4 mg/dl (0.2-1.3); Blood Urea Nitrogen 16 mg/dl (7-17); Carbon Dioxide 27 mmol/L (22.0-30.0); Estimated Glomerular Filt Rate 84 ml/min (>60); GFR (African American) 101 ML/MIN (>60); Globulin 3.1 g/dL (1.3-3.2); Total Protein,Serum 7.3 g/dl (6.3-8.2)
[2023-09-29 10:21] LABS: Calcium 8.8 mg/dl (8.4-10.2); Glucose 98 mg/dl (74-100)
[2023-09-29 10:36] LABS: HCG,Quantitative < 2 mIU/ml (0-5.42)
== END 2023-09-29 23:59 | disposition home or self-care (01) ==
LOC: LAB 09:33
PROVIDERS: Visit Provider Nurse Practitioner Obstetrics & Gynecology
DX: Z30.09 Encounter for other general counseling and advice on contraception (principal)
CPT/HCPCS: 36415; 80053; 84702; 85025

== ENCOUNTER 2023-10-06 05:44 | Day surgery (SDC) | payer BC, OTHER, SELFPAY ==
[2023-10-01 12:11] VITALS: BMI 39.1
[2023-10-06] VITALS (10 sets, daily range): BP systolic 98–159; BP diastolic 46–95; PULSE 57–73; RESP 16–18; TEMP 36.1–36.4; O2SAT 92–99
[2023-10-06] MEDS: LACTATED RINGERS 1000ML 1,000 ML 25 ML IV (06:30)
--- NOTE | 2023-10-06 06:59 | EXP.ANES.CKL ---
[facility] Disclaimer: The information contained in this section may have been updated after the patient was seen, as this information can be updated by other users. Medical History Menorrhagia Surgical History History of Social History (Updated 10/06/23 @ 06:28 by Aleena Marin RN) Smoking Status: Former smoker tobacco type: cigarettes packs per day: 1 alcohol intake: never substance use type: denies use current occupational status: employed Travel in the last 8 weeks: None household members: other housing: other [facility] Anesthesia Checklist Patient Identification Patient Identification: Arm Band, Family and Verbal (Name & ) Structural Data Admitted From: Home Planned Operative Procedure/s: Lap. DAGMAR Salp Consent for Planned Operative Procedure(s) Verified: Yes Verified Documents: Surgical Consent and History and Physical NPO Status Verified Time NPO: 23:00 Chart Verification Results Verified: CBC, BMP, Chest Xray and HCG Additional verifications Patient : No Anesthesia Reactions: No Hx Blood Transfusions: No Blood Transfusion Reaction: No Cardiovascular Assessment Heart Sounds: S1 & S2 Pulse Rhythm: Irregular Peripheral Edema: No Airway Assessment Mallampati Score:: Class II C-Spine Mobility Assessed: Yes (FROM) TMJ Mobility Assessed: Yes Dentition: Good Dentition (Nothing loose per pt.) Neurological Assessment Level of Consciousness: Awake, Alert, Appropriate and Follows Commands Hx Seizures: No Numbness or tingling in extremities: No Anesthesia Plan Anesthesia Risk discussed: Yes Anesthesia Plan: Verified ASA Class: II Anesthesia Type: General
[2023-10-06] MEDS: CEFAZOLIN SODIUM 2 GM in 0.9 % SODIUM CHLORIDE 100 ML IV (07:45)
[2023-10-06] MEDS: ROPIVACAINE 0.5% 30ML VIAL 300 MG (07:46)
--- NOTE | 2023-10-06 08:19 | EXP.ANES.I ---
[facility] Anesthesia Record Part I Anesthesia Record I Intake, IV Amount: 700 Hydration: Adequate Estimated blood loss (mL): 10 Urine output (mL): 50 Blood Products used (#): none Blood Pressure: 98/46 SaO2: 92 Pulse Rate: 69 Airway Patency: Patent Respiratory Rate: 16 Temperature: 97.5 F Patient is:: Drowsy and Stable Stable to PACU at:: 08:20
--- NOTE | 2023-10-06 09:01 | P.PNANES_ITS ---
[facility] Anesthesia Record Part II Anesthesia Record Part II Discharge Time: 08:45 Destination: Surgical Day Care (OP Surgery) PACU nurse assessment reviewed?: Yes Patient Condition:: Good Anesthesia Complications:: None Swallowing reflex intact?: Yes Airway Patency: Patent Cyanosis?: No Blood Pressure: 130/77 SaO2: 95 Respiratory Rate: 16 Pulse Rate: 59 Temperature: 97.5 F Mental Status: Alert & Oriented Pain level:: 0 Nausea and/or vomitting:: None Intake, IV Amount: 700 Hydration: Adequate
--- NOTE | 2023-10-06 09:04 | P.OP_ITS ---
Date of procedure: 10/06/23 Pre-op Diagnosis:: Desire for sterilization Post-op Diagnosis:: Desire for sterilization, pelvic peritoneal adhesions Procedure performed:: Laparoscopic bilateral salpingectomy, lysis of bladder?uterine adhesions. Surgeon:: Talon Hodge MD VENDING MACHINE FILLER:: Rowan Dupreenga Anesthesia: GETA Estimated blood loss (mL): 25 Clinical Note:: She is a 33-year-old lady who expressed desire for sterilization. The risks and benefits as well as the irreversibility of 21 sb with the patient prior to surgery. Operative findings:: She had an anteverted somewhat bulky uterus. There was a thick adhesion from the bladder to the anterior uterus. It was approximately 1 cm wide. There was a small strand of adhesion on the posterior aspect of the uterus as well. There were adhesions of the omentum along the anterior abdominal wall. The rest the pelvis appeared normal. Ovaries and tubes appeared normal. Operative note:: She was taken to the operating room where general anesthesia was found be adequate. She was prepped and draped in normal sterile fashion in the semilithotomy position. A weighted speculum was placed in the vagina and the anterior lip of the cervix was grasped with a tenaculum. I then inserted a Mima uterine manipulator into the cervical os. The balloon was then insufflated. I changed gloves and injected 10 cc of 0.5% ropivacaine around her umbilicus and made a small incision within the umbilicus. I inserted a Veress needle into the abdominal cavity. The peritoneal cavity was then insufflated with carbon dioxide gas to a pressure of 20 mmHg. I then inserted a 5 millimeter trocar under direct vision. I injected through and through the pubic hairline, made a small incision here and inserted an 8 mm trocar under direct vision. I identified the inferior epigastric artery on the left side, went lateral to these and injected through and through. I then placed a 5 mm trocar here under direct vision. The pelvis and upper abdomen were then inspected and the findings were as previously dictated. There was a thick adhesion from the bladder to the anterior uterus and I took this down with harmonic scalpel since it seemed to pull on the bladder. I grasped the right tube at the cornua and using harmonic scalpel on coagulation mode I cut through the tube. I then grasped the distal tube and using harmonic scalpel cut along the mesosalpinx. The tube was removed through 8 mm trocar site. This was similarly performed on the patient's left side. I then injected 30 cc of 0.5% ropivacaine into the pelvis. After assuring hemostasis the gas was let out of the abdomen and hemostasis was once again assured. The abdomen was then reinsufflated. The secondary trochars were removed under direct vision. The gas was let out her abdomen. The primary trocar was then removed. The 8 mm trocar site was closed deeply with 2-0 Vicryl suture followed by subcuticular 4-0 Monocryl suture. The 5 mm trocar sites were closed with subcuticular 4-0 Monocryl. Sterile dressings were applied. The patient tolerated the procedure well and was taken to the recovery room in excellent condition. All sponge instrument and needle counts were correct. The estimated blood loss was less than 25 cc. Condition: stable Disposition: PACU Specimens:: Fallopian tubes bilaterally Complications:: None
== END 2023-10-06 09:26 | disposition home or self-care (01) ==
PROVIDERS: Visit Provider Nurse Practitioner Obstetrics & Gynecology
PROC: (CPT 58661; principal; 2023-10-06 07:30)
DX: Z30.2 Encounter for sterilization (principal); N73.6 Female pelvic peritoneal adhesions (postinfective)
CPT/HCPCS: 58661; 96374; J3490; J0690; J1100; J1885; J2250; J2405; J3010; J7120